=== PATIENT | male | born 1985 | race Hispanic/Latino ===

== ENCOUNTER 2019-09-05 13:39 | Emergency (ER) | payer OTHER ==
[2019-09-05] MEDS ORDERED: Acetaminophen 500 MG TAB ONE (14:00)
== END 2019-09-05 15:20 | disposition home or self-care (01) ==
LOC: ERS 13:39
DX: J11.1 Influenza due to unidentified influenza virus with other respiratory manifestations (principal)
CPT/HCPCS: 87081; 87430; 87804; 99283

== ENCOUNTER 2019-12-20 21:17 | Emergency (ER) | payer SELFPAY ==
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
== END 2019-12-20 22:50 | disposition home or self-care (01) ==
LOC: ERS 21:17
DX: S39.012A Strain of muscle, fascia and tendon of lower back, initial encounter (principal); S40.012A Contusion of left shoulder, initial encounter; V49.9XXA Car occupant (driver) (passenger) injured in unspecified traffic accident, initial encounter
CPT/HCPCS: 72100